=== PATIENT | female | born 1960 | race Caucasian/White ===

== ENCOUNTER → 2018-07-08 | Outpatient (CLI) | payer MEDICARE, MEDICAID ==
[~2018-07-08] MED LIST: ARICEPT10 MG PO; CELEXA40 MG PO; DEPAKOTE125 MG PO; LEVOTHROID50 MCG PO; NAMENDA 10 MG T10 MG PO; ZYPREXA5 MG PO; ZYRTEC10 M2 PO
== END ==
LOC: M.RAD 09:53
DX: Z12.31 Encounter for screening mammogram for malignant neoplasm of breast (principal)

== ENCOUNTER → 2019-07-15 | Outpatient (CLI) | payer MEDICARE, MEDICAID | LOC: M.RAD 10:36 | DX: Z12.31 Encounter for screening mammogram for malignant neoplasm of breast (principal) ==

== ENCOUNTER → 2020-09-06 | Outpatient (CLI) | payer MEDICARE, MEDICAID | LOC: M.RAD 07-16 13:00 | PROVIDERS: ATTEND Family Medicine | DX: Z12.31 Encounter for screening mammogram for malignant neoplasm of breast (principal) ==